=== PATIENT | female | born 1975 | race Caucasian/White ===

== ENCOUNTER 2016-05-20 09:31 | Emergency (ER) | payer BC ==
[2016-05-20 11:03] VITALS: BP 119/76
--- NOTE | 2016-05-20 11:18 | UC ---
Reggie Russell SooYoung, scribed for LexFátima AvilesDO on 05/20/16 at 1028 . Headache HPI - HPI Summary HPI Summary: A 41 y/o F presents to [facility] with fever and "raging" WHITESIDE over the forehead and face , onset two days ago. Pt didn't go to work two days ago due to sx. Associated positive sx: malaise, mildly productive cough, fever and chills. WHITESIDE described as throbbing. Pt had a GI bug approx 10 days ago with n/v/d that resolved. She notes both her children have been ill over the past week. One child diagnosed with PNA and secondary sinusitis six days ago. She notes only getting 4 to 5 non-continuous hours of sleep for past two weeks due to sick children, kids having sleep difficulties. - History Of Current Complaint Chief Complaint: UCGeneralIllness Stated Complaint: SINUS COMPLAINT Time Seen by Provider: 05/20/16 10:03 Hx Obtained From: Patient Hx Last Menstrual Period: 05/20/16 Onset/Duration: Gradual Onset, Lasting Days, Still Present Onset Of Symptoms: Gradual, Still Present Initially Headache Was: Moderate Currently Pain Is: Mild Pain Intensity: 2 Pain Scale Used: 0-10 Numeric Timing: Constant Character: Throbbing Location of Headache: Frontal, Other: - maxillary Aggravating Factor: Position Change, Other - supine Allevating Factors: Other (Noted In Comments) - upright Associated Signs And Symptoms: Positive: Nausea - mild, Sinus Pressure, Fever. Negative: Dizziness, Vomiting, Neck Stiffness - Allergies/Home Medications Allergies/Adverse Reactions: Allergies Allergy/AdvReac Type Severity Reaction Status Date / Time Amoxicillin Allergy Severe Rash Verified 05/20/16 10:17 Penicillins [PCN] Allergy Severe Rash Verified 05/20/16 10:17 Adhesive Tape Allergy ITCHY RASH Verified 05/20/16 10:17 ENVIRONMENTAL Allergy Unknown Uncoded 05/20/16 10:17 Reaction Details LATEX Allergy ITCHY RASH Uncoded 05/20/16 10:17 PMH/Surg Hx/FS Hx/Imm Hx Previously Healthy: Yes Endocrine History Of: Denies: Diabetes, Thyroid Disease Cardiovascular History Of: Denies: Cardiac Disorders, Hypertension Respiratory History Of: Denies: COPD, Asthma GI/ History Of: Denies: Ulcer Neurological History Of: Reports: Migraine - SEVERE - CAUSING HOSPITALIZATION X 2 Psychological History Of: Reports: Anxiety - Surgical History Surgical History: None - Family History Known Family History: Positive: Cardiac Disease - maternal grandmother - CHF, at 62, Diabetes - maternal grandmother - Social History Occupation: Employed Full-time Lives: With Family Alcohol Use: None Alcohol Amount: denies alcohol use while Substance Use Type: None Smoking Status (MU): Never Smoked Tobacco Have You Smoked in the Last Year: No - Immunization History Most Recent Influenza Vaccination: Pt Declined Offer Most Recent Tetanus Shot: Pt reports received at her final visit with [facility] at office Most Recent Pneumonia Vaccination: na Review of Systems Constitutional: Fever, Chills Skin: Negative Eyes: Negative ENT: Negative Respiratory: Cough - mild, productive Cardiovascular: Negative Gastrointestinal: Negative Genitourinary: Negative Motor: Negative Neurovascular: Negative Musculoskeletal: Negative Neurological: Headache Psychological: Negative All Other Systems Reviewed And Are Negative: Yes Physical Exam Triage Information Reviewed: Yes Appearance: Well-Appearing, No Pain Distress, Well-Nourished Vital Signs: Initial Vital Signs Temp 98.6 F 05/20/16 10:01 Pulse 78 05/20/16 10:01 Resp 18 05/20/16 10:01 BP 119/76 05/20/16 10:01 Pulse Ox 98 05/20/16 10:01 Vital Signs Reviewed: Yes Eyes: Positive: Conjunctiva Clear. Negative: Discharge ENT: Positive: Hearing grossly normal, Pharynx normal, TMs normal, Other: - sinus tenderness over frontal and maxillary sinuses. Negative: Tonsillar swelling, Tonsillar exudate, Trismus, Muffled/hoarse voice Neck exam: Normal Neck: Positive: Supple Respiratory: Positive: Lungs clear, Normal breath sounds, No respiratory distress, No accessory muscle use Cardiovascular: Positive: RRR, No Murmur Musculoskeletal Exam: Normal Musculoskeletal: Positive: Strength Intact Neurological: Positive: Alert, Muscle Tone Normal Psychological Exam: Normal Psychological: Positive: Age Appropriate Behavior Skin Exam: Normal, Other - pos: warm, dry, nml color Headache Course/Dx - Differential Dx/Diagnosis Differential Diagnosis/HQI/PQRI: Sinus Headache, Tension Headache, Viral Syndrome, Other - uri Provider Diagnoses: sinusitis Discharge - Discharge Plan Condition: Stable Disposition: HOME Prescriptions: Albuterol HFA INHALER* [Ventolin HFA Inhaler*] 2 puff INH Q4H PRN #1 mdi PRN Reason: Sob/Wheezing Azithromycin TAB* [Zithromax TAB (Z-ANNA MARIE) 250 mg #6 tabs] 0 mg PO .SEE INSTRUCTIONS #6 tab guaiFENesin ER TAB [Mucinex*] 600 mg PO BID PRN #1 box PRN Reason: Cough guaiFENesin/CODIEN 100MG-10MG* [Robitussin AC 100Mg-10Mg*] 5 - 10 ml PO BEDTIME PRN #100 udc MDD 10ml PRN Reason: Cough Patient Education Materials: Guaifenesin/Hydrocodone (By mouth), Sinusitis (ED) Referrals: Horace Velasquez, [employer] [facility] [facility] [Primary Care Provider] - If Needed Additional Instructions: TRY USING THE NETTI POT IN THE MORNINGS DISCUSSED. YOU MUST ALWAYS USE CLEAN WATER. REMEMBER, POSTURE IS AN IMPORTANT FACTOR IN SINUS DRAINAGE. MOVE YOUR NECK, BREATHE. INHALED BRONCHODILATORS: You have received a prescription for an inhaled bronchodilator -- a medication which stimulates the airways in the lung to dilate. This improves the flow of air in asthma, bronchitis, and emphysema. These medicines have some similarity to adrenaline, and can cause similar side effects: shakiness, racing heart, and a sense of nervousness. These side effects decrease with time. Contact your doctor if these side effects are severe. Do not over-use the medicine. Too-frequent use of the inhaler may make it ineffective. Call your doctor if the inhaler is not controlling your symptoms at the prescribed doses. COUGH-SUPPRESSANT & EXPECTORANT MEDICATION: You are to use a cough medication as needed for relief of symptoms. This medicine is a combination of an expectorant (to make the mucous thinner and more easily "coughed up") and a cough suppressant (to reduce the frequency of coughing). The cough-suppressant medicine is related to narcotics. You may experience mild nausea and sleepiness. Some patients who are very sensitive to narcotics may have stomach pain from this medicine. Taking the medicine with food reduces these side effects. Do not drive or work with machinery until you know how this medicine affects you. The expectorant should have no side effects. Iodine-containing expectorants (such as organidin) should not be taken by persons with active thyroid disease unless approved by your doctor. Call the doctor if you develop shortness of breath, hives, rash, itching, lightheadedness, or severe nausea and vomiting. EXPECTORANT MEDICATION: An expectorant medicine has been prescribed. This type of drug makes mucous thinner, helping the sinuses, nose, and bronchial tubes to remain free of pus and mucous. Expectorants make a cough less severe and more comfortable, and help infected sinuses drain. In general, antihistamines defeat the purpose of the expectorant by making mucous thicker. They should be avoided unless specifically recommended by your physician. AZITHROMYCIN: Azithromycin (Zithromax) is a broad spectrum antibiotic in the same class as erythromycin. It can treat a variety of bacterial infections, but is most frequently used for respiratory infections. Azithromycin is extremely long-lasting. It accumulates in body tissues and continues to kill bacteria for many days. In order to improve absorption, Azithromycin should be taken at least one hour before or two hours after a meal. It does not have the same strong tendency to upset the stomach as erythromycin and is usually very well tolerated. Patients who have had a rash or other true allergic reactions to erythromycin should not take this medication. Call if you develop gastrointestinal distress, severe diarrhea, rash, hives, itching, or shortness of breath. ANY TIME YOU TAKE AN ANTIBIOTIC, IT IS IMPORTANT TO REPLENISH THE BODY'S BALANCE OF "GOOD" BACTERIA BY EATING HIGH QUALITY CULTURED FOOD SUCH YOGURT, SAURKRAUT OR LOLLY CHI AND/OR TAKING A PROBIOTIC SUPPLEMENT. As we discussed: Take the Azithromycin prescription if you feel you need it. Remember to eat probiotic foods such as local yogurt, kimchi, sauerkraut, etc. for one month after finishing your prescriptions. Use the Albuterol inhaler as prescribed as needed. Use the Robitussin/Codeine as prescribed as needed. The documentation as recorded by the Reggie julien SooYoung accurately reflects the service I personally performed and the decisions made by me, Fátima Burnett DO.
== END 2016-05-20 11:34 | disposition home or self-care (01) ==
LOC: UCEAST 09:31
DX: G43.909 Migraine, unspecified, not intractable, without status migrainosus (principal); J32.9 Chronic sinusitis, unspecified; F41.9 Anxiety disorder, unspecified; Z88.3 Allergy status to other anti-infective agents; Z88.0 Allergy status to penicillin; Z91.040 Latex allergy status
CPT/HCPCS: 99212; G0463

== ENCOUNTER 2017-04-05 08:09 | Emergency (ER) | payer BC, OTHER ==
[2017-04-05 08:23] VITALS: BP 111/56
--- NOTE | 2017-04-05 10:03 | UC ---
FLU HPI - HPI Summary HPI Summary: PT WITH URI SX FOR ABOUT A MONTH. FELT WORSE PAST FEW DAYS SO WENT TO PCP WHO RX DOXY FOR BRONCHITIS. PT WAS HESITANT TO TAKE IT AND WANTS TO BE SWABBED FOR FLU. OVER PAST 2 DAYS HAS DEVELOPED FEVER 102.4, BODY ACHES, WHITESIDE AND NAUSEA. - History of Current Complaint Chief Complaint: UCGeneralIllness Stated Complaint: FLU SYMPTOMS Time Seen by Provider: 04/05/17 08:25 Hx Obtained From: Patient Hx Last Menstrual Period: 03/31/17 Onset/Duration: Gradual Onset, Lasting Days, Still Present Severity Currently: Moderate Severity Initially: Moderate Pain Intensity: 7 Pain Scale Used: 0-10 Numeric Associated Signs & Symptoms: Positive: Fever, Myalgia, Cough, Nasal Congestion, Headache - Allergy/Home Medications Allergies/Adverse Reactions: Allergies Allergy/AdvReac Type Severity Reaction Status Date / Time MS Amoxicillin [Amoxicillin] Allergy Severe Rash Verified 04/05/17 08:19 MS Penicillins [PCN] Allergy Severe Rash Verified 04/05/17 08:19 Adhesive Tape Allergy ITCHY RASH Verified 04/05/17 08:19 ENVIRONMENTAL Allergy Unknown Uncoded 04/05/17 08:19 Reaction Details LATEX Allergy ITCHY RASH Uncoded 04/05/17 08:19 PMH/Surg Hx/FS Hx/Imm Hx Previously Healthy: Yes - Surgical History Surgical History: Yes Surgery Procedure, Year, and Place: d/c - Family History Known Family History: Positive: Cardiac Disease - maternal grandmother - CHF, at 62, Diabetes - maternal grandmother - Social History Alcohol Use: None Alcohol Amount: denies alcohol use while Substance Use Type: None Smoking Status (MU): Never Smoked Tobacco Have You Smoked in the Last Year: No - Immunization History Most Recent Influenza Vaccination: Pt Declined Offer Most Recent Tetanus Shot: Pt reports received at her final visit with [facility] at office Most Recent Pneumonia Vaccination: na Review of Systems Constitutional: Fever, Chills, Fatigue ENT: Nasal Discharge Respiratory: Shortness Of Breath, Cough Cardiovascular: Negative Gastrointestinal: Nausea Genitourinary: Negative Musculoskeletal: Myalgia Neurological: Headache All Other Systems Reviewed And Are Negative: Yes Physical Exam Triage Information Reviewed: Yes Appearance: No Pain Distress, Well-Nourished, Ill-Appearing - MOD Vital Signs: Initial Vital Signs Temp 98.3 F 04/05/17 08:20 Pulse 98 04/05/17 08:20 Resp 18 04/05/17 08:20 BP 111/56 04/05/17 08:20 Pulse Ox 99 04/05/17 08:20 Eyes: Positive: Conjunctiva Clear ENT: Positive: Hearing grossly normal, Pharynx normal, TMs normal Neck: Positive: Supple, Nontender, Enlarged Nodes @ - SHOTTY SPFL CERVICAL LAD Respiratory Exam: Normal Cardiovascular: Positive: Tachycardia Abdomen Description: Positive: Soft Musculoskeletal: Positive: No Edema Neurological: Positive: Alert Psychological: Positive: Age Appropriate Behavior Skin: Negative: rashes Diagnostics - Laboratory Diagnostic Studies Completed/Ordered: FLU SWAB NEGATIVE Flu Course/Dx - Course Course Of Treatment: DISCUSSED POSSIBILITY OF PNA. PT ALREADY HAS RX FOR DOXY. DECLINES XRAY TODAY. WILL SEEK FOLLOW-UP IF NOT IMPROVING WITH TX. - Differential Dx/Diagnosis Provider Diagnoses: BRONCHITIS Discharge - Discharge Plan Condition: Stable Disposition: HOME Prescriptions: Codeine Phosphate/Guaifenesin [Codeine-Guaifen 10-100 mg/5 ml] 5 - 10 ml PO Q6H PRN #150 ml MDD 40ML PRN Reason: Cough Ondansetron ODT TAB* [Zofran Odt TAB*] 4 mg PO Q6H PRN #20 tab.odt PRN Reason: Nausea/Vomiting Patient Education Materials: Acute Bronchitis (ED) Referrals: Horace Velasquez [facility] [Primary Care Provider] - If Needed Additional Instructions: FLU SWAB NEGATIVE. GO AHEAD AND FILL RX FOR DOXY PRESCRIBED BY YOUR PCP. RX FOR COUGH MEDICINE AND NAUSEA MEDICINE SENT IN FOR YOU TODAY. FOLLOW-UP WITH YOUR PCP IF YOU ARE NOT IMPROVING EXPECTED OVER THE NEXT FEW DAYS.
== END 2017-04-05 09:58 | disposition home or self-care (01) ==
LOC: UCEAST 08:09
DX: J40 Bronchitis, not specified as acute or chronic (principal); Z91.040 Latex allergy status; Z88.0 Allergy status to penicillin; Z91.048 Other nonmedicinal substance allergy status
CPT/HCPCS: 87502; 99212; G0463

== ENCOUNTER 2017-10-23 10:12 | Emergency (ER) | payer BC ==
[2017-10-23 11:27] LABS: ABS Basophils 0 10^3/ul (0-0.2); ABS Eosinophils 0.1 10^3/ul (0-0.6); ABS Lymphocytes 1.2 10^3/ul (1.0-4.8); ABS Monocytes 0.5 10^3/ul (0-0.8); ABS Neutrophils 3.4 10^3/ul (1.5-7.7); ABS Nucleated RBC 0 10^3/ul; Hematocrit 42 % (35-47); Hemoglobin 14.6 g/dl (12.0-16.0); Lymphocyte % 23.4 % (25-47); Mean Corpuscular HGB Conc 35 g/dl (31-36); Mean Corpuscular Hemoglobin 32 pg (27-31); Mean Corpuscular Volume 92 fL (80-97); Mean Platelet Volume 7.7 um3 (7.4-10.4); Nucleated Red Blood Cells % 0.2; Platelet Count 237 10^3/ul (150-450); Red Blood Count 4.53 10^6/ul (4.00-5.40); Red Cell Distribution Width 12 % (10.5-15); White Blood Count 5.2 10^3/ul (3.5-10.8)
[2017-10-23] MEDS ORDERED: NS 0.9% 1000 ML* 1,000 ML IV ONE (11:28)
[2017-10-23] MEDS ORDERED: Pantoprazole IV* 40 MG IV ONE (11:28)
[2017-10-23] MEDS ORDERED: ALPRAZolam TAB* 0.25 MG PO ONE (11:29)
--- OUTSIDE RECORDS SUMMARY | 2017-10-23 11:41 | XMS REPORT ---
:1975 External Reference #:[id number] Author Organization [employer] Address [address] [facility] [place] [address] [place] [address] Phone [phone] Care Team Providers Name Role Phone Cynthia Grover MD Primary Care Physician Unavailable Payers Type Date Identification Numbers Payment Provider Subscriber Commercial Policy Number: [id number] [facility] Corona Group Number: [id number] [address] PayID: [id number] [place] [address] Problems Date Description Provider Status Onset: 05/29/2012 FH: Cardiovascular disease Lindsey Ramires M.D. Active Onset: 05/29/2012 Family history of endocrine disorders Lindsey Ramires M.D. Active Onset: 01/08/2013 Acquired spondylolisthesis Anand Ortega M.D. Active Onset: 01/30/2017 Trochanteric bursitis Leann Nieto M.D. Active Onset: 01/30/2017 Gluteal tendinitis Leann Nieto M.D. Active Onset: 06/04/2017 Localized, secondary osteoarthritis Killian Brunner MD Active of the shoulder region Onset: 06/04/2017 Sprain of shoulder and upper arm Killian Brunner MD Active Family History Date Family Member(s) Problem(s) Comments General Diabetes General Heart Disease General Cancer General arthritis Social History Type Date Description Comments Lives With Spouse Lives With dog Occupation PhD [employer] Cigarette Use Never Smoked Cigarettes ETOH Use Denies alcohol use during Recreational Drug Use Denies Drug Use Smoking Patient has never smoked Exercise Type/Frequency bike, hike, snow shoe, cross ct sking, yoga, run Exercise Type/Frequency Exercises regularly Sexual Hx text yes Allergies, Adverse Reactions, Alerts Date Description Reaction Status Severity Comments 05/13/2012 Latex Contact dermatitis active 05/13/2012 Adhesives Contact dermatitis active 10/24/2012 Penicillins rash, mouth sores active Medications Medication Date Status Form Strength Qnty SIG Indications Ordering Provider Advil / Active Capsules 200mg as needed Unknown 0000 Acetaminophen / Active Tablets 500mg 1-2 tabs Unknown 0000 3x a day as needed Celecoxib 05/21/ Hx Capsules 100mg 60cap 100mg by Olaf Reyes 2018 - s mouth Wilrfedo, 10/22/ twice a MD 2018 day as needed Doxycycline 04/03/ Hx Tablets 100mg 20tab 1 tab by R05 Camila Hyclate 2018 - s mouth Cotton, 05/21/ twice a M.D. 2018 day for 10 days Meloxicam 01/24/ Hx Tablets 7.5mg 30tab 1 -2 M25.551 Horace 2016 - s tablet by SAURABH Velasquez 04/03/ mouth once 2018 daily as needed Tramadol HCL 01/24/ Hx Tablets 50mg 30tab 1-2 M25.551 Horace 2016 - s tablets SAURABH Velasquez 04/03/ every 8 2018 hours as needed for pain. Omeprazole 01/24/ Hx Capsules DR 20mg 14cap 1 by mouth R10.9 Horace 2017 - s once daily SAURABH Velasquez 2017 Tennis Elbow 11/10/ Hx Misc 2unit Wear on M25.529 Horace Strap 2015 - s bilateral SAURABH Velasquez 01/23/ elbows for 2017 lateral eipcondyli tis. No Active 03/10/ Hx Unknown Medications 2014 - 2016 No Active 11/26/ Hx Unknown Medications 2013 - 2013 Azithromycin 11/26/ Hx Tablets 250mg 6tabs 2 tabs by 461.8 Horace 2013 - mouth SAURABH Velasquez 12/30/ every day 2013 x1 day, 1 tab by mouth every day x 4 days Fluticasone 11/26/ Hx Suspension 50mcg/Act 16gm 2 sprays 381.81 Horace Propionate 2013 - each SAURABH Velasquez 03/10/ nostril 2014 qd. Lidocaine 10/07/ Hx Solution 2% 100cc 5 cc po 528.5 Lindsey Viscous 2012 - Justin 10/07/ tam Viera 2012 Lidocaine 10/07/ Hx Solution 2% 100un 10 cc 528.5 Lindsey Viscous 2012 - its Justin, 10/24/ sandra Viera 2012 / Hx Tablets 27-0.8mg 90tab 1 po qd Unknown 0000 - s 2013 Fish Oil / Hx Capsules 90cap 1 po qd Unknown 0000 - s 2012 Aleve / Hx Capsules 220mg 1-2 by Unknown 0000 - mouth 10/22/ twice a 2018 day as needed Immunizations CPT Code Status Date Vaccine Lot # [id number] Given 01/18/2015 Tdap - Tetanus/Diptheria/Acellular Pertussis [id number] Vital Signs Date Vital Result Comment 10/22/2017 Height 64 inches 5'4" Weight 140.00 lb Heart Rate 71 /min BP Systolic Sitting 120 mmHg BP Diastolic Sitting 66 mmHg Body Temperature 96.4 F O2 % BldC Oximetry 98 % BMI (Body Mass Index) 24.0 kg/m2 06/04/2017 Height 64 inches 5'4" Weight 138.00 lb Heart Rate 64 /min BP Systolic Sitting 100 mmHg BP Diastolic Sitting 60 mmHg Respiratory Rate 16 /min Pain Level 5 BMI (Body Mass Index) 23.7 kg/m2 05/21/2017 Height 64 inches 5'4" Weight 138.00 lb Heart Rate 64 /min BP Systolic Sitting 104 mmHg BP Diastolic Sitting 60 mmHg Respiratory Rate 16 /min Pain Level 4 BMI (Body Mass Index) 23.7 kg/m2 05/21/2017 Weight 138.50 lb Heart Rate 69 /min BP Systolic Sitting 100 mmHg BP Diastolic Sitting 60 mmHg Body Temperature 96.1 F O2 % BldC Oximetry 98 % 04/03/2017 Weight 143.00 lb Heart Rate 79 /min BP Systolic 112 mmHg BP Diastolic 72 mmHg Body Temperature 97.1 F O2 % BldC Oximetry 98 % Peak Flow Meter 400 500,400 01/30/2017 Height 64 inches 5'4" Weight 140.00 lb BP Systolic 108 mmHg BP Diastolic 68 mmHg Pain Level 8 BMI (Body Mass Index) 24.0 kg/m2 01/24/2017 Height 63.5 inches 5'3.50" Weight 144.00 lb Heart Rate 68 /min BP Systolic Sitting 104 mmHg BP Diastolic Sitting 70 mmHg Body Temperature 97.1 F O2 % BldC Oximetry 98 % BMI (Body Mass Index) 25.1 kg/m2 11/11/2015 Weight 148.00 lb Heart Rate 68 /min BP Systolic Sitting 118 mmHg BP Diastolic Sitting 64 mmHg Respiratory Rate 15 /min Body Temperature 98.1 F O2 % BldC Oximetry 98 % 03/10/2014 Height 63.5 inches 5'3.50" Weight 132.00 lb Heart Rate 81 /min BP Systolic 100 mmHg BP Diastolic 60 mmHg Body Temperature 97.7 F O2 % BldC Oximetry 99 % BMI (Body Mass Index) 23.0 kg/m2 11/26/2013 Weight 139.50 lb Heart Rate 67 /min BP Systolic Sitting 102 mmHg BP Diastolic Sitting 68 mmHg Body Temperature 99.2 F O2 % BldC Oximetry 97 % 07/24/2013 Weight 141.00 lb Heart Rate 68 /min BP Systolic Sitting 110 mmHg BP Diastolic Sitting 60 mmHg 01/08/2013 Height 64 inches 5'4" Weight 159.00 lb BP Systolic 118 mmHg BP Diastolic 72 mmHg Pain Level 0 BMI (Body Mass Index) 27.3 kg/m2 10/24/2012 Weight 149.00 lb Heart Rate 80 /min BP Systolic Sitting 118 mmHg BP Diastolic Sitting 70 mmHg 10/14/2012 Weight 143.56 lb Heart Rate 76 /min BP Systolic Sitting 98 mmHg BP Diastolic Sitting 60 mmHg Body Temperature 98.3 F 10/09/2012 Weight 144.00 lb Heart Rate 96 /min BP Systolic 118 mmHg BP Diastolic 64 mmHg Body Temperature 98.7 F 10/07/2012 Weight 147.25 lb Heart Rate 91 /min BP Systolic Sitting 102 mmHg BP Diastolic Sitting 70 mmHg Body Temperature 97.2 F O2 % BldC Oximetry 99 % 08/27/2012 Weight 140.00 lb Heart Rate 80 /min BP Systolic Sitting 106 mmHg BP Diastolic Sitting 64 mmHg 05/13/2012 Height 63.50 inches 5'3.50" Weight 144.00 lb Heart Rate 70 /min BP Systolic 90 mmHg BP Diastolic 68 mmHg BMI (Body Mass Index) 25.1 kg/m2 Results Test Date Test Result H/L Range Note GC/Chlamydia Amplified 06/06/2017 Chlamydia trachomatis Negative Negative Rna Rna Neisseria gonorrhoeae (GC) Rna Negative Negative Laboratory test 06/06/2017 Cytology SEE RESULT BELOW 1 finding Rapid Influenza A & B 04/05/2017 Influenza A Molecular NEGATIVE Negative 2 Molecular Influenza B Molecular NEGATIVE Negative CBC No Diff 01/24/2017 White Blood Count 4.4 10^3/uL 3.5-10.8 Red Blood Count 4.76 10^6/uL 4.0-5.4 Hemoglobin 15.0 g/dL 12.0-16.0 Hematocrit 44 % 35-47 Mean Corpuscular Volume 93 fL 80-97 Mean Corpuscular Hemoglobin 32 pg High 27-31 Mean Corpuscular HGB Conc 34 g/dL 31-36 Red Cell Distribution Width 12 % 10.5-15 Platelet Count 171 10^3/uL 150-450 Mean Platelet Volume 9 um3 7.4-10.4 Comp Metabolic Panel 01/24/2017 Sodium 137 mmol/L 133-145 Potassium 4.0 mmol/L 3.5-5.0 Chloride 103 mmol/L 101-111 Co2 Carbon Dioxide 29 mmol/L 22-32 Anion Gap 5 mmol/L 2-11 Glucose 85 mg/dL 70-100 Blood Urea Nitrogen 11 mg/dL 6-24 Creatinine 0.78 mg/dL 0.51-0.95 BUN/Creatinine Ratio 14.1 8-20 Calcium 9.2 mg/dL 8.6-10.3 Total Protein 7.1 g/dL 6.4-8.9 Albumin 4.8 g/dL 3.2-5.2 Globulin 2.3 g/dL 2-4 Albumin/Globulin Ratio 2.1 1-3 Total Bilirubin 0.50 mg/dL 0.2-1.0 Alkaline Phosphatase 42 U/L 34-104 Alt 12 U/L 7-52 Ast 21 U/L 13-39 Egfr Non- 81.4 >60 Egfr 104.7 >60 3 Laboratory test finding 01/24/2017 Amylase 75 U/L 29-103 Lipase 32 U/L 11.0-82.0 Urinalysis Profile 01/24/2017 Urine Color Yellow Urine Appearance Clear Urine Specific [employer] 1.005 Low 1.010-1.030 Urine pH 7.0 5-9 Urine Urobilinogen Negative Negative Urine Ketones Negative Negative Urine Protein Negative Negative Urine Leukocytes Trace Negative Urine Blood 1+ Negative Urine Nitrite Negative Negative Urine Bilirubin Negative Negative Urine Glucose Negative Negative Urine White Blood Cell Trace(0-5/hpf) Absent Urine Red Blood Cell Absent Absent Urine Bacteria 1+ Absent Urine Squamous Epithelial Cell Present Absent Urine Culture And Sensitivities 01/24/2017 Urine Culture SEE RESULT BELOW 4 Urinalysis Profile 01/24/2017 Urine Color Yellow 5 Urine Appearance Cloudy 5 Urine Specific [employer] 1.004 Low 1.010-1.030 5 Urine pH 7.0 5-9 5 Urine Urobilinogen Negative Negative 5 Urine Ketones Negative Negative 5 Urine Protein Negative Negative 5 Urine Leukocytes 3+ Negative 5 Urine Blood 1+ Negative 5 Urine Nitrite Negative Negative 5 Urine Bilirubin Negative Negative 5 Urine Glucose Negative Negative 5 Urine White Blood Cell 1+(6-10/hpf) Absent 5 Urine Red Blood Cell Trace(0-2/hpf) Absent 5 Urine Bacteria 1+ Absent 5 Urine Squamous Epithelial Cell Present Absent 5 Urine Culture And 01/24/2017 Urine Culture SEE RESULT BELOW 5, 6 Sensitivities Ua Routine 01/24/2017 Ua Specific [employer] 1.005 Ua PH 7 Ua Color Yellow Ua Appera Cloudy Ua WBC + Ua Protein Neg Ua Glucose Neg Ua Ketones Neg Ua Bilirubin Neg Ua Urobilinogen Neg Ua Nitrite Neg Ua Occult Blood About 50 Laboratory test finding 01/24/2017 Test Urine Neg CBC Auto Diff 11/11/2015 White Blood Count 7.0 10^3/uL 3.5-10.8 Red Blood Count 4.38 10^6/uL 4.0-5.4 Hemoglobin 13.7 g/dL 12.0-16.0 Hematocrit 40 % 35-47 Mean Corpuscular Volume 91 fL 80-97 Mean Corpuscular Hemoglobin 31 pg 27-31 Mean Corpuscular HGB Conc 35 g/dL 31-36 Red Cell Distribution Width 12 % 10.5-15 Platelet Count 174 10^3/uL 150-450 Mean Platelet Volume 9 um3 7.4-10.4 Abs Neutrophils 4.9 10^3/uL 1.5-7.7 Abs Lymphocytes 1.4 10^3/uL 1.0-4.8 Abs Monocytes 0.5 10^3/uL 0-0.8 Abs Eosinophils 0.1 10^3/uL 0-0.6 Abs Basophils 0.1 10^3/uL 0-0.2 Abs Nucleated RBC 0 10^3/uL Granulocyte % 69.7 % 38-83 Lymphocyte % 20.3 % Low 25-47 Monocyte % 7.6 % 1-9 Eosinophil % 1.1 % 0-6 Basophil % 1.3 % 0-2 Nucleated Red Blood Cells % 0 Comp Metabolic Panel 11/11/2015 Sodium 141 mmol/L 133-145 Potassium 3.6 mmol/L 3.5-5.0 Chloride 106 mmol/L 101-111 Co2 Carbon Dioxide 28 mmol/L 22-32 Anion Gap 7 mmol/L 2-11 Glucose 139 mg/dL High 70-100 Blood Urea Nitrogen 19 mg/dL 6-24 Creatinine 0.85 mg/dL 0.51-0.95 BUN/Creatinine Ratio 22.4 High 8-20 Calcium 8.8 mg/dL 8.6-10.3 Total Protein 6.5 g/dL 6.4-8.9 Albumin 4.3 g/dL 3.2-5.2 Globulin 2.2 g/dL 2-4 Albumin/Globulin Ratio 2.0 1-3 Total Bilirubin 0.40 mg/dL 0.2-1.0 Alkaline Phosphatase 61 U/L 34-104 Alt 10 U/L 7-52 Ast 18 U/L 13-39 Egfr Non- 74.1 >60 Egfr 95.3 >60 7 Laboratory test finding 11/11/2015 TSH (Thyroid Stim Horm) 1.12 mcIU/mL 0.34-5.60 Vitamin D Total 25(Oh) 33.7 ng/mL 30-50 Lyme Disease Serology Negative Negative 8 Anti Nuclear Antibody 0.1 U 9 Rheumatoid Factor <15 IU/mL <15 10 Cyclic Citrullinated Pep Igg <15.6 U 11 Erythrocyte Sed Rate 5 mm/Hr 0-14 C Reactive Protein < 1.00 mg/L < 5.00 12 Laboratory test 02/03/2015 Group B Strep SEE RESULT BELOW 13, 14 finding Culture Screen Comp Metabolic Panel 11/08/2014 Sodium 136 mmol/L 133-145 Potassium 3.2 mmol/L Low 3.5-5.0 Chloride 104 mmol/L 101-111 Co2 Carbon Dioxide 23 mmol/L 22-32 Anion Gap 9 mmol/L 2-11 Glucose 79 mg/dL 70-100 Blood Urea Nitrogen 10 mg/dL 6-24 Creatinine 0.51 mg/dL 0.51-0.95 BUN/Creatinine Ratio 19.6 8-20 Calcium 7.8 mg/dL Low 8.6-10.3 Total Protein 5.7 g/dL Low 6.4-8.9 Albumin 3.3 g/dL 3.2-5.2 Globulin 2.4 g/dL 2-4 Albumin/Globulin Ratio 1.4 1-3 Total Bilirubin 0.50 mg/dL 0.2-1.0 Alkaline Phosphatase 67 U/L 34-104 Alt 14 U/L 7-52 Ast 22 U/L 13-39 Egfr Non- 134.3 >60 Egfr 172.7 >60 15 Laboratory test finding 11/08/2014 Lipase 21 U/L 11.0-82.0 C Reactive Protein 3.17 mg/L < 5.00 16 CBC Auto Diff 11/08/2014 White Blood Count 12.5 10^3/uL High 4.8-10.8 Red Blood Count 3.87 10^6/uL Low 4.0-5.4 Hemoglobin 12.8 g/dL 12.0-16.0 Hematocrit 38 % 35-47 Mean Corpuscular Volume 97 fL 80-97 Mean Corpuscular Hemoglobin 33 pg High 27-31 Mean Corpuscular HGB Conc 34 g/dL 31-36 Red Cell Distribution Width 13 % 10.5-15 Platelet Count 150 10^3/uL 150-450 Mean Platelet Volume 9 um3 7.4-10.4 Abs Neutrophils 11.1 10^3/uL High 1.5-7.7 Abs Lymphocytes 0.7 10^3/uL Low 1.0-4.8 Abs Monocytes 0.7 10^3/uL 0-0.8 Abs Eosinophils 0 10^3/uL 0-0.6 Abs Basophils 0 10^3/uL 0-0.2 Abs Nucleated RBC 0 10^3/uL Granulocyte % 88.4 % High 38-83 Lymphocyte % 5.8 % Low 25-47 Monocyte % 5.4 % 1-9 Eosinophil % 0.2 % 0-6 Basophil % 0.2 % 0-2 Nucleated Red Blood Cells % 0 Urinalysis Profile 11/08/2014 Urine Color Yellow Urine Appearance Clear Urine Specific [employer] 1.015 1.010-1.030 Urine pH 6.0 5-9 Urine Urobilinogen Negative Negative Urine Ketones 2+ Negative Urine Protein Negative Negative Urine Leukocytes Negative Negative Urine Blood Negative Negative Urine Nitrite Negative Negative Urine Bilirubin Negative Negative Urine Glucose Negative Negative Pertussis PCR 02/28/2014 Bordetella Source Nasopharyngeal s <SEE NOTE> 17 Bordetella pertussis PCR Negative 18 Bordetella parapertussis PCR Negative 19 Blood Culture 12/27/2013 Blood Culture (SEE NOTE) 20 Wound Culture/Sensi 12/27/2013 Wound/Misc Culture-Gram (SEE NOTE) 21 Stain CBC Auto Diff 12/27/2013 White Blood Count 7.3 10^3/uL 4.8-10.8 Red Blood Count 4.39 10^6/uL 4.0-5.4 Hemoglobin 13.5 g/dL 12.0-16.0 Hematocrit 40 % 35-47 Mean Corpuscular Volume 90 fL 80-97 Mean Corpuscular Hemoglobin 31 pg 27-31 Mean Corpuscular HGB Conc 34 g/dL 31-36 Red Cell Distribution Width 12 % 10.5-15 Platelet Count 135 10^3/uL Low 150-450 Mean Platelet Volume 8 um3 7.4-10.4 Abs Neutrophils 5.0 10^3/uL 1.5-7.7 Abs Lymphocytes 1.0 10^3/uL 1.0-4.8 Abs Monocytes 1.1 10^3/uL High 0-0.8 Abs Eosinophils 0.1 10^3/uL 0-0.6 Abs Basophils 0.1 10^3/uL 0-0.2 Abs Nucleated RBC 0 10^3/uL Granulocyte % 68.6 % 38-83 Lymphocyte % 13.3 % Low 25-47 Monocyte % 15.8 % High 1-9 Eosinophil % 1.5 % 0-6 Basophil % 0.8 % 0-2 Nucleated Red Blood Cells % 0 Laboratory test finding 12/27/2013 Lactic Acid 0.7 mmol/L 0.5-2.2 Comp Metabolic Panel 12/27/2013 Sodium 139 mmol/L 133-145 Potassium 3.6 mmol/L Low 3.7-5.6 Chloride 105 mmol/L 101-111 Co2 Carbon Dioxide 27 mmol/L 22-32 Anion Gap 7 mmol/L 2-11 Glucose 71 mg/dL 70-100 Blood Urea Nitrogen 7 mg/dL 6-24 Creatinine 0.70 mg/dL 0.51-0.95 BUN/Creatinine Ratio 10.0 8-20 Calcium 8.7 mg/dL 8.6-10.3 Total Protein 6.7 g/dL 6.4-8.9 Albumin 4.1 g/dL 3.2-5.2 Globulin 2.6 g/dL 2-4 Albumin/Globulin Ratio 1.6 1-3 Total Bilirubin 0.60 mg/dL 0.2-1.0 Alkaline Phosphatase 75 U/L 34-104 Alt 12 U/L 7-52 Ast 21 U/L 13-39 Egfr Non- 93.6 >60 Egfr 120.4 >60 22 Laboratory test finding 12/27/2013 C Reactive Protein 68.65 mg/L High < 5.00 23 Serum Negative Negative 24 Urinalysis W/Microscopic 02/07/2013 Urine Color Yellow Urine Appearance Clear Urine Specific [employer] 1.008 Low 1.010-1.030 Urine Esterase Negative Negative Urine Nitrate Negative Negative Urine Urobilinogen Negative E.U./dL Negative Urine Protein Negative mg/dL Negative Urine pH 6.0 5-9 Urine Blood 1+ Negative Urine Ketones 1+ mg/dL Negative Urine Bilirubin Negative Negative Urine Glucose Negative mg/dL Negative Urine WBC 1+ (<10 /hpf) None Seen Urine RBC None Seen None Seen Urine Epithelial Cells 1+ Squamous /hpf None Seen Bacteria Urine 1+ None Seen CBC No Diff 02/07/2013 White Blood Count 11.6 10^3/uL High 4.8-10.8 Red Blood Count 3.78 10^6/uL Low 4.0-5.4 Hemoglobin 12.7 g/dL 12.0-16.0 Hematocrit 35 % 35-47 Mean Corpuscular Volume 94 fL 80-97 Mean Corpuscular Hemoglobin 34 pg High 27-31 Mean Corpuscular HGB Conc 36 g/dL 31-36 Red Cell Distribution Width 13 % 10.5-15 Platelet Count 153 10^3/uL 150-450 Mean Platelet Volume 10 um3 7.4-10.4 Comp Metabolic Panel 02/07/2013 Sodium 134 mmol/L 133-145 Potassium 3.6 mmol/L 3.5-5.0 Chloride 105 mmol/L 101-111 Co2 Carbon Dioxide 21.0 mmol/L Low 22-32 Anion Gap 8.0 mmol/L 2-11 Glucose 70 mg/dL 70-100 Blood Urea Nitrogen 7 mg/dL 6-24 Creatinine 0.60 mg/dL 0.50-1.40 BUN/Creatinine Ratio 11.7 8-20 Calcium 8.5 mg/dL 8.1-9.9 Total Protein 6.4 g/dL 6.2-8.1 Albumin 3.4 g/dL Low 3.6-5.4 Globulin 3.0 g/dL 2-4 Albumin/Globulin Ratio 1.1 1-3 Total Bilirubin 0.7 mg/dL 0.4-1.5 Alkaline Phosphatase 198 U/L High 30-110 Alt 18 U/L 14-54 Ast 31 U/L 12-42 Egfr Non- 112.5 >60 Egfr 144.7 >60 25 Laboratory test finding 02/07/2013 Uric Acid 5.6 mg/dL 2.6-7.2 Type & Screen 02/07/2013 Patient Blood Type O Positive Antibody Screen NEGATIVE Hepatitis Acute Panel 10/28/2012 Hepatitis C Antibody Nonreactive Nonreactive Hepatitis B Core IgM Nonreactive Nonreactive Hepatitis B Surface Antigen Nonreactive Nonreactive Liver Function Panel 10/28/2012 Alt 29 U/L 14-54 Ast 30 U/L 12-42 Alkaline Phosphatase 55 U/L 30-110 Direct Bilirubin 0.1 mg/dL 0.1-0.5 Total Bilirubin 0.5 mg/dL 0.4-1.5 Albumin 3.0 g/dL Low 3.6-5.4 Laboratory test finding 10/28/2012 GTT 2HR Gestational (SEE NOTE) 26 CBC Auto Diff 10/28/2012 White Blood Count 10.1 10^3/uL 4.8-10.8 Red Blood Count 3.52 10^6/uL Low 4.0-5.4 Hemoglobin 12.3 g/dL 12.0-16.0 Hematocrit 34 % Low 35-47 Mean Corpuscular Volume 96 fL 80-97 Mean Corpuscular Hemoglobin 35 pg High 27-31 Mean Corpuscular HGB Conc 37 g/dL High 31-36 Red Cell Distribution Width 13 % 10.5-15 Platelet Count 148 10^3/uL Low 150-450 Mean Platelet Volume 9 um3 7.4-10.4 Abs Neutrophils 7.8 10^3/uL High 1.5-7.7 Abs Lymphocytes 1.4 10^3/uL 1.0-4.8 Abs Monocytes 0.8 10^3/uL 0-0.8 Abs Eosinophils 0.1 10^3/uL 0-0.6 Abs Basophils 0 10^3/uL 0-0.2 Abs Nucleated RBC 0 10^3/uL Granulocyte % 77.1 % 38-83 Lymphocyte % 13.6 % Low 25-47 Monocyte % 8.4 % 1-9 Eosinophil % 0.6 % 0-6 Basophil % 0.3 % 0-2 Nucleated Red Blood Cells % 0 Liver Function Panel 10/14/2012 Total Protein 5.4 g/dL Low 6.2-8.1 Albumin 3.0 g/dL Low 3.6-5.4 Globulin 2.4 g/dL 2-4 Albumin/Globulin Ratio 1.3 1-3 Total Bilirubin 0.5 mg/dL 0.4-1.5 Direct Bilirubin 0.1 mg/dL 0.1-0.5 Indirect Bilirubin 0.4 mg/dL 0.3-1.0 Alkaline Phosphatase 70 U/L 30-110 Alt 114 U/L High 14-54 Ast 99 U/L High 12-42 Comp Metabolic Panel 10/09/2012 Sodium 135 mmol/L 133-145 Potassium 3.9 mmol/L 3.5-5.0 Chloride 105 mmol/L 101-111 Co2 Carbon Dioxide 22.0 mmol/L 22-32 Anion Gap 8.0 mmol/L 2-11 Glucose 121 mg/dL High 70-100 Blood Urea Nitrogen 4 mg/dL Low 6-24 Creatinine 0.50 mg/dL 0.50-1.40 BUN/Creatinine Ratio 8.0 8-20 Calcium 8.7 mg/dL 8.1-9.9 Total Protein 5.6 g/dL Low 6.2-8.1 Albumin 3.0 g/dL Low 3.6-5.4 Globulin 2.6 g/dL 2-4 Albumin/Globulin Ratio 1.2 1-3 Total Bilirubin 0.4 mg/dL 0.4-1.5 Alkaline Phosphatase 83 U/L 30-110 Alt 166 U/L High 14-54 Ast 162 U/L High 12-42 Egfr Non- 138.8 >60 Egfr 178.5 >60 27 Kev Garcia Comprehensive 10/09/2012 Ebv Capsid Ag IgG Ab Positive Negative Ebv Capsid Ag IgM Ab Negative Negative Kev-Garcia Nuclear Antigen Positive Negative Kev-Garcia Virus Interp See Comment 28 CMV Igg/Igm 10/09/2012 Cytomegalovirus IgG Antibody Negative Negative 29 Cytomegalovirus IgM Antibody Negative Negative Coxsackie A 10/09/2012 Coxsackie Virus Type A(2) Ab <1:8 Coxsackie Virus Type A(4) Ab <1:8 Coxsackie Virus Type A(7) Ab <1:8 Coxsackie Virus Type A(9) AB <1:8 Coxsackie Virus Type A(10) Ab <1:8 Coxsackie Virus Type A(16) Ab <1:8 30 Coxsackie B 10/09/2012 Coxsackie Virus Type B(1) Ab <1:8 Coxsackie Virus Type B(2) Ab <1:8 Coxsackie Virus Type B(3) Ab <1:8 Coxsackie Virus Type B(4) Ab <1:8 Coxsackie Virus Type B(5) Ab <1:8 Coxsackie Virus Type B(6) Ab <1:8 31 CBC With Manual Diff 10/09/2012 White Blood Count 7.9 10^3/uL 4.8-10.8 Red Blood Count 3.71 10^6/uL Low 4.0-5.4 Hemoglobin 12.4 g/dL 12.0-16.0 Hematocrit 35 % 35-47 Mean Corpuscular Volume 95 fL 80-97 Mean Corpuscular Hemoglobin 34 pg High 27-31 Mean Corpuscular HGB Conc 35 g/dL 31-36 Red Cell Distribution Width 12 % 10.5-15 Platelet Count 196 10^3/uL 150-450 Mean Platelet Volume 9 um3 7.4-10.4 Abs Neutrophils 5.7 10^3/uL 1.5-7.7 Abs Lymphocytes 1.3 10^3/uL 1.0-4.8 Abs Monocytes 0.8 10^3/uL 0-0.8 Abs Eosinophils 0 10^3/uL 0-0.6 Abs Basophils 0 10^3/uL 0-0.2 Abs Nucleated RBC 0 10^3/uL Neutrophil % 70 % 38-83 Lymphocytes % 18 % Low 25-47 Monocytes % 8 % 0-13 Eosinophils % 1 % 0-6 Reactive Lymph % 3 % 0-6 RBC Morphology Normal Normal Laboratory test 08/27/2012 D Dimer Quantitative 382 ng/mL High Less Than 230 32 finding 1 SEE RESULT BELOW Name: STANLEY CORONA : [address]: Emilia Ball MD Acct: [id number] Unit: [id number] AGE: 42 Location: [facility] Re06/06/17 SEX: F Status: REG REF SPEC: [id number] PILAR: 06/06/17-[address]: Emilia Ball MD REQ: [id number] RECD: 06/07/17 STATUS: ROMERO ENG DR: Horace Velasquez COMPRESSED GASES TESTER _ ORDERED: TP IMAGE ANAL, HPV/Thin Prep COMMENTS: [id number] Negative for Intraepithelial lesion or Malignancy A. Ectocervical/Endocervical Specimen Adequacy: Satisfactory of evaluation Transformation zone component identified Patient Information: HPV: High risk HPV RNA testing regardless of pap results. Actual Specimen Date: 06/07/17 Last Menstrual Date: 05/24/17 Spec Date if unknown: unknown Date Time Test Result Flag (u) Normal Range 06/06/17 6362 @ HPV RNA Negative Negative @ @ The high-risk HPV types detected by the assay include: 16, @ 18, 31, 33, 35, 39, 45, 51, 52, 56, 58, 59, 66, and 68. Signed (signature on file) HEATHER Vilchis (ASCP) 06/11 1041 This Pap test was evaluated with the assistance of the [employer] System. Due to cytologic findings at the manager child microscope, comprehensive manual rescreening by a Contact Finger Assembler may be required. The Pap Smear is a screening test designed to aid in the detection of premalignant and malignant conditions of the uterine cervix. It is not a diagnostic procedure and should not be used as the sole means of detecting cervical cancer. Both false- positive and false- negative reports do occur. Depending on your risk status, a Pap smear should be obtained and evaluated every 1-3 years. END OF REPORT DEPARTMENT OF PATHOLOGY, [address] [place] [address] Chance Bernard M.D. Director [facility] # [id number] 2 [employer] [place]: [id number] 3 Because ethnic data is not always readily available, this report includes an eGFR for both -Americans and non- Americans. The National Kidney Disease Education Program (NKDEP) does not endorse the use of the MDRD equation for patients that are not between the ages of 18 and 70, are , have extremes of body size, muscle mass, or nutritional status, or are non- or non-. According to the National Kidney Foundation, irrespective of diagnosis, the stage of the disease is based on the level of kidney function: Stage Description GFR(mL/min/1.73 m(2)) 1 Kidney damage with normal or decreased GFR 90 2 Kidney damage with mild decrease in GFR 60-89 3 Moderate decrease in GFR 30-59 4 Severe decrease in GFR 15-29 5 Kidney failure <15 (or dialysis) 4 SEE RESULT BELOW Name: LEV CORONASONYA Aviles : [address]: Horace Velasquez NP Acct: [id number] Unit: [id number] AGE: 41 Location: [facility] Re01/24/17 SEX: F Status: REG REF SPEC: [id number] PILAR: 01/24/[address]: Horace Velasquez NP REQ: [id number] RECD: 01/24/17 STATUS: COMP _ SOURCE: URINE SPDESC: ORDERED: Urine Culture QUERIES: Urine Source: Clean Catch Procedure Result Reported Site Urine Culture Final 01/25/17- 1619 ML No Growth (<1,000 CFU/mL) * ML - MAIN LAB ([facility]) . END OF REPORT * ML=Testing performed at Main Lab DEPARTMENT OF PATHOLOGY, [address] [place] [address] Chance Bernard M.D. Director [facility] # [id number] 6 SEE RESULT BELOW Name: STANLEY CORONA : [address]: Horace Velasquez NP Acct: [id number] Unit: [id number] AGE: 41 Location: [facility] Re01/24/17 SEX: F Status: REG REF SPEC: [id number] PILAR: 01/24/[address]: Horace Velasquez NP REQ: [id number] RECD: 01/24/17 STATUS: COMP _ SOURCE: URINE SPDESC: ORDERED: Urine Culture Procedure Result Reported Site Urine Culture Final 01/25/17- 1622 ML No Growth (<1,000 CFU/mL) * ML - MAIN LAB ([facility]) . END OF REPORT * ML=Testing performed at Main Lab DEPARTMENT OF PATHOLOGY, [address] [place] [address] Chance Bernard M.D. Director [facility] # [id number] 7 Because ethnic data is not always readily available, this report includes an eGFR for both -Americans and non- Americans. The National Kidney Disease Education Program (NKDEP) does not endorse the use of the MDRD equation for patients that are not between the ages of 18 and 70, are , have extremes of body size, muscle mass, or nutritional status, or are non- or non-. According to the National Kidney Foundation, irrespective of diagnosis, the stage of the disease is based on the level of kidney function: Stage Description GFR(mL/min/1.73 m(2)) 1 Kidney damage with normal or decreased GFR 90 2 Kidney damage with mild decrease in GFR 60-89 3 Moderate decrease in GFR 30-59 4 Severe decrease in GFR 15-29 5 Kidney failure <15 (or dialysis) 8 Serologic response to B. burgdorferi infection is not detected, but cannot rule out early infection during which low or undetectable antibody levels to B. burgdorferi may be present. If clinically indicated, a new serum specimen should be submitted in 7-14 days. Test Performed by: [place] [address] Superintendent Track: Artis Bowen II, M.D., Ph.D. 9 REFERENCE VALUE <=1.0 (Negative) Test Performed by: [place] [address] Superintendent Track: Artis Bowen II, M.D., Ph.D. 10 Test Performed by: [place] [address] Superintendent Track: Artis Bowen II, M.D., Ph.D. 11 REFERENCE VALUE <20.0 (Negative) Test Performed by: [place] [address] Superintendent Track: Artis Bowen II, M.D., Ph.D. 12 Acute inflammation: >10.00 13 Comment: pt has PCN allergy, needs C S if positive 14 SEE RESULT BELOW Name: STANLEY CORONA : [address]: Amberly Owens MD Acct: [id number] Unit: [id number] AGE: 39 Location: [facility] Re02/03/15 SEX: F Status: DEP REF SPEC: [id number] PILAR: 02/03/[address] [facility] [address]: Amberly Owens MD REQ: [id number] RECD: 02/03/15 STATUS: GILBERT ENG DR: Horace Velasquez COMPRESSED GASES TESTER _ SOURCE: CER/VAG/RE SPDESC: ORDERED: Grp B Strp Scrn, GBS Sensi COMMENTS: Comment: pt has PCN allergy, needs C S if positive QUERIES: Is patient penicillin allergic and/or sensitivities needed? Y Procedure Result Reported Site Group B Strep Culture Screen Final 02/05/15- 1137 ML Group B Strep Screen Positive Organism 1 STREP GROUP B GBS Sensitivity Final 02/06/15- 1053 ML Organism 1 STREP AGALACTIAE - (GROUP B) 1. STREP AGALACTIAE - (GROUP B) M.I.C. RX --------- ------ Ampicillin <=0.25 S Penicillin <=0.12 S Clindamycin >=8 R Levofloxacin 1 S Linezolid 2 S * Moxifloxacin <=0.25 S * Quinupristin/Dalfopristin 0.5 S Tetracycline >=16 R Tigecycline <=0.12 S Vancomycin <=0.5 S Imipenem-Deduced S * Ampicillin/Sulbactam-Deduced S Cefazolin-Deduced S CONTINUED ON NEXT PAGE * ML=Testing performed at Main Lab DEPARTMENT OF PATHOLOGY, [address] [place] [address] Chance Bernard M.D. Director [facility] # [id number] Patient: STANLEY CORONA [id number] (Continued) Specimen: [id number] Collected: 02/03/15 Received: 02/03/15 (Continued) Procedure Result Reported Site GBS Sensitivity Final (continued) * These antibiotics are not available in the [facility] Formulary Contact the Microbiology Department for any additional antibiotic reporting. * ML - MAIN LAB ([facility]) . END OF REPORT * ML=Testing performed at Main Lab DEPARTMENT OF PATHOLOGY, [address] [place] [address] Chance Bernard M.D. Director [facility] # [id number] 15 Because ethnic data is not always readily available, this report includes an eGFR for both -Americans and non- Americans. The National Kidney Disease Education Program (NKDEP) does not endorse the use of the MDRD equation for patients that are not between the ages of 18 and 70, are , have extremes of body size, muscle mass, or nutritional status, or are non- or non-. According to the National Kidney Foundation, irrespective of diagnosis, the stage of the disease is based on the level of kidney function: Stage Description GFR(mL/min/1.73 m(2)) 1 Kidney damage with normal or decreased GFR 90 2 Kidney damage with mild decrease in GFR 60-89 3 Moderate decrease in GFR 30-59 4 Severe decrease in GFR 15-29 5 Kidney failure <15 (or dialysis) 16 Acute inflammation: >10.00 17 Nasopharyngeal swab 18 REFERENCE VALUE Not Applicable 19 REFERENCE VALUE Not Applicable ADDITIONAL INFORMATION Laboratory developed test. Test Performed by: [address] [address] Superintendent Track: Tod Harrison M.D. 20 RUN DATE: 01/01/14 [facility] LAB LIVE PAGE 1 RUN TIME: [address] [place] [address] Specimen Inquiry Name: STANLEY CORONA : [address]: Caleb Adams MD Acct: [id number] Unit: [id number] AGE: 38 Location: ED Re12/27/13 SEX: F Status: DEP ER SPEC: [id number] PILAR: 12/27/13-[address] [facility] [address]: Kai Mckee DO REQ: [id number] RECD: 12/27/13 STATUS: GILBERT ENG DR: Horace Velasquez COMPRESSED GASES TESTER _ SOURCE: BLOOD,VENO SPDES: ORDERED: Blood Cult Procedure Result Verified Site Aerobic Culture Bottle Final 01/01/14- 1452 ML No Growth Day 5 Anaerobic Culture Bottle Final 01/01/14- 1452 ML No Growth Day 5 END OF REPORT * ML=Testing performed at Main Lab DEPARTMENT OF PATHOLOGY, [facility] [employer] [place], [place] [address] Chance Bernard M.D. Director [facility] # [id number] RUN DATE: 12/30/13 [facility] LAB LIVE PAGE 1 RUN TIME: [address] [place] [address] Specimen Inquiry Name: XAVIERSTANLEY : [address]: Caleb Adams MD Acct: [id number] Unit: [id number] AGE: 38 Location: ED Re12/27/13 SEX: F Status: DEP ER SPEC: [id number] PILAR: 12/27/[address] [facility] [address]: Kai Mckee DO REQ: [id number] RECD: 12/27/13 STATUS: GILBERT ENG DR: Horace Velasquez COMPRESSED GASES TESTER _ SOURCE: BREAST,RIG SPDES: ORDERED: Culture Stain Procedure Result Verified Site Wound/Misc Gram Stain Final 12/28/13- 44 ML 2+ Neutrophils No Organisms Seen Wound/Misc Culture Final 12/30/13- 913 ML Organism 1 STAPHYLOCOCCUS AUREUS Quantity 1+ Organism 2 NORMAL LELA Quantity 1+ 1. STAPHYLOCOCCUS AUREUS M.I.C. RX --------- ------ Penicillin >=0.5 R Clindamycin <=0.25 S Erythromycin <=0.25 S Gentamicin <=0.5 S Linezolid 1 S Nitrofurantoin <=16 S Oxacillin <=0.25 S * Quinupristin/Dalfopristin <=0.25 S Rifampin <=0.5 S Tetracycline <=1 S Doxycycline - Deduced S * Minocycline - Deduced S Trimethoprim/Sulfamethoxazole <=10 S Vancomycin 1 S CONTINUED ON NEXT PAGE * ML=Testing performed at Main Lab DEPARTMENT OF PATHOLOGY, [facility] [employer] [place] [address] Chance Bernard M.D. Director [facility] # [id number] RUN DATE: 12/30/13 [facility] LAB LIVE PAGE 2 RUN TIME: [address] [place] [address] Specimen Inquiry Patient: STANLEY CORONA [id number] (Continued) Specimen: [id number] Collected: 12/27/13 Received: 12/27/13 (Continued) Procedure Result Verified Site Wound/Misc Culture Final (continued) 12/30/13913 1. STAPHYLOCOCCUS AUREUS (continued) M.I.C. RX --------- ------ Imipenem-Deduced S * Ampicillin/Sulbactam-Deduced S Cefazolin-Deduced S * These antibiotics are not available in the [facility] Formulary Contact the Microbiology Department for any additional antibiotic reporting. END OF REPORT * ML=Testing performed at Main Lab DEPARTMENT OF PATHOLOGY, [address] [place] [address] Chance Bernard M.D. Director [facility] # [id number] 22 Because ethnic data is not always readily available, this report includes an eGFR for both -Americans and non- Americans. The National Kidney Disease Education Program (NKDEP) does not endorse the use of the MDRD equation for patients that are not between the ages of 18 and 70, are , have extremes of body size, muscle mass, or nutritional status, or are non- or non-. According to the National Kidney Foundation, irrespective of diagnosis, the stage of the disease is based on the level of kidney function: Stage Description GFR(mL/min/1.73 m(2)) 1 Kidney damage with normal or decreased GFR 90 2 Kidney damage with mild decrease in GFR 60-89 3 Moderate decrease in GFR 30-59 4 Severe decrease in GFR 15-29 5 Kidney failure <15 (or dialysis) 23 Acute inflammation: >10.00 24 This test detects intact HCG only and is indicated for the early detection of . 25 Because ethnic data is not always readily available, this report includes an eGFR for both -Americans and non- Americans. The National Kidney Disease Education Program (NKDEP) does not endorse the use of the MDRD equation for patients that are not between the ages of 18 and 70, are , have extremes of body size, muscle mass, or nutritional status, or are non- or non-. According to the National Kidney Foundation, irrespective of diagnosis, the stage of the disease is based on the level of kidney function: Stage Description GFR(mL/min/1.73 m(2)) 1 Kidney damage with normal or decreased GFR 90 2 Kidney damage with mild decrease in GFR 60-89 3 Moderate decrease in GFR 30-59 4 Severe decrease in GFR 15-29 5 Kidney failure <15 (or dialysis) 26 GLU Fast 72 Col: 10/28/12 0825 GLU 1HR 146 Col: 10/28/12 0936 GLU 2HR 119 Col: 10/28/12 1040 GTT Interp Col: 10/28/12 0825 Gestational Diabetes Diagnostic: OGTT Glucose Load: samples drawn after 75-gram glucose drink Target Levels: Fasting <92 mg/dl 1hr <180 mg/dl 2hr <153 mg/dl If ONE or more values meet or exceed the target level, gestational diabetes is diagnosed. @ 27 Because ethnic data is not always readily available, this report includes an eGFR for both -Americans and non- Americans. The National Kidney Disease Education Program (NKDEP) does not endorse the use of the MDRD equation for patients that are not between the ages of 18 and 70, are , have extremes of body size, muscle mass, or nutritional status, or are non- or non-. According to the National Kidney Foundation, irrespective of diagnosis, the stage of the disease is based on the level of kidney function: Stage Description GFR(mL/min/1.73 m(2)) 1 Kidney damage with normal or decreased GFR 90 2 Kidney damage with mild decrease in GFR 60-89 3 Moderate decrease in GFR 30-59 4 Severe decrease in GFR 15-29 5 Kidney failure <15 (or dialysis) 28 RESULT: Results suggest past infection. In most populations, at least 90% of the adult population will have been infected with EBV sometime in the past and therefore, will be positive for anti-VCA/IgG and anti- EBNA. Antibodies to EBNA develop 6-8 weeks after primary infection and remain present for life. Presence of VCA/ IgM antibodies indicates recent primary infection with EBV. Test Performed by: [place] [address] Superintendent Track: Venancio Hand III, M.D. 29 Test Performed by: [place] [address] Superintendent Track: Venancio Hand III, M.D. 30 REFERENCE RANGE: <1:8 INTERPRETIVE CRITERIA: <1:8 Antibody Not Detected > or=1:8 Antibody Detected Single titers of > or=1:32 are indicative of recent infection. Titers of 1:8 or 1:16 may be indicative of either past or recent infection, since CF antibody levels persist for only a few months. A four-fold or greater increase in titer between acute and convalescent specimens confirms the diagnosis. There is considerable crossreactivity among enteroviruses; however, the highest titer is usually associated with the infecting serotype. This test was developed and its performance characteristics have been determined by [employer]. Performance characteristics refer to the analytical performance of the test. Test Performed by: [facility] [address] [place] [address] 31 REFERENCE RANGE: <1:8 INTERPRETIVE CRITERIA: <1:8 Antibody Not Detected > or=1:8 Antibody Detected Single titers of > or=1:32 are indicative of recent infection. Titers of 1:8 or 1:16 may be indicative of either past or recent infection, since CF antibody levels persist for only a few months. A four-fold or greater increase in titer between acute and convalescent specimens confirms the diagnosis. There is considerable crossreactivity among enteroviruses; however, the highest titer is usually associated with the infecting serotype. This test was developed and its performance characteristics have been determined by [employer]. Performance characteristics refer to the analytical performance of the test. Test Performed by: [facility] [address] [place] [address] 32 Please note: The following may produce a false positive D Dimer test: - Rheumatoid factor greater than 60 IU/ml - Plasma hemoglobin greater than 0.05 gm/dl - Bilirubin greater than 50 mg/dl - Lipids greater than 1000 mg/dl - FDP greater than 20 ug/ml Procedures Date CPT Code Description Status 12/28/2016 Mammogram Completed Encounters Type Date Location Provider CPT E/M Dx Office Visit 06/04/2017 [facility] [place] [address] S46.012A 2:00p AroldoMJorge M19.211 S46.011D M19.111 Office Visit 05/21/2017 1:00p [facility] Olaf Reyes [address]135 S46.012A Of Brian Villalobos MD S46.011A Office Visit 05/21/2017 10:40a [facility] Internal Medicine Camila Linder 85013 M25.511 - Francesca Viera Office Visit 04/03/2017 4:00p [facility] Internal Medicine Camila Linder [address]236 R05 Halie Ma M.D. Office Visit 01/30/2017 8:15a [facility] Leann Nieto M.D. 14635 M25.551 Of Brian M70.61 M76.01 M54.5 Office Visit 01/24/2017 9:20a [facility] Internal Medicine - Horace Velasquez, [place] [address] M25.551 [place] R11.0 R10.9 Z13.220 Office Visit 11/11/2015 2:40p [facility] Internal Medicine - Horace Velasquez, [place] [address] M25.529 [place] M79.673 R53.83 M25.50 Office Visit 03/10/2014 2:00p [facility] Internal Medicine - Horace Velasquez, [place] [address] 465.9 [place] Office Visit 11/26/2013 9:00a [facility] Internal Medicine - Horace Velasquez, [place] [address] 461.8 [place] 381.81 309.29 Office Visit 07/24/2013 10:40a [facility] Internal Medicine - Gin Sanches M.D. 36237 611.71 [place] 368.10 Office Visit 01/08/2013 3:00p [facility] Anand Ortega, [address] 738.4 Of [facility] Aylin 756.11 Office Visit 10/24/2012 4:00p [facility] Internal Medicine Aaliyah Brown N.PHieu 68014 729.5 - [place] Office Visit 10/14/2012 3:00p [facility] Internal Medicine Albania Cruz M.D., 44824 780.79 - [place] FACP 079.99 Office Visit 10/09/2012 4:20p [facility] Internal Medicine - Albania Cruz M.D., 24265 057.9 [place] FACP 079.99 780.79 528.2 Office Visit 10/07/2012 1:20p [facility] Internal [facility] Lindsey Ramires M.D. 11046 528.5 - [place] 381.4 691.8 Office Visit 08/27/2012 12:40p [facility] Internal Medicine Gin Sanches M.D. 15572 729.5 - [place] Office Visit 05/13/2012 10:00a [facility] Internal Medicine Lindsey Ramires M.D. 14624 V70.0 - [place] V17.49 V18.19 780.79 Plan of Care 10/22/2017 - Horace Velasquez, NPR53.83 Other fatigueComments:I am ordering some lab work to evaluate your symptoms. I will notify you of the results.R50.9 Fever, [id number] Other chest painNew Orders:EKGR06.02 Shortness of breath
[2017-10-23 11:50] LABS: EGFR Non-African American 79.8 (>60)
--- NOTE | 2017-10-23 12:00 | RAD ---
INDICATION: Chest pain. COMPARISON: Comparison is made with a prior study from October 22, 2017. TECHNIQUE: An AP upright view of the chest was obtained. FINDINGS: The heart is within normal limits in size. Mediastinal and hilar contours appear within normal limits. The lungs are clear. No pleural effusion or pneumothorax is seen. IMPRESSION: NO EVIDENCE FOR ACTIVE CARDIOPULMONARY DISEASE.
--- NOTE | 2017-10-23 12:44 | ED ---
Complex/Multi-Sys Presentation - HPI Summary HPI Summary: Pt is a 42 y/o female who presents to the ED c/o weakness. She states 3 weeks ago she began to have a normal cold, with sore throat and fever. One week later everyone in her family had a bad virus, including pink eye and high fever. She reports spiking a fever of 104 degrees F. Later that week she began to have more symptoms, including weakness, chills, and extreme fatigue. Three days ago, she started to have even more symptoms, which include chest pressure, foggy mind , SOB, blurry vision, headache, nausea, urinary urgency and frequency, more frequent and irregular BM, and anxiety about her health status. She denies any double vision, vomiting, diarrhea, hematuria, rashes, LE edema, bruises, dysuria , or hematochezia. Pt has been traveling a lot in the past few weeks, and is under stress due to poor family health. Pt saw Dr. Mir for her continuous eye pain two days ago, and had a CXR and bloodwork done. She denies any new medications, and has been taking vitamins and Advil for her symptoms. Pt is normally active but states she has not been able to work or exercise lately due to her symptoms. - History Of Current Complaint Chief Complaint: EDShortnessOfBreath Hx Obtained From: Patient Onset/Duration: Gradual Onset, Lasting Weeks - 3, Worse Since Timing: Constant Aggravating Factor(s): Recent stress Associated Signs And Symptoms: Positive: Weakness, Headache, SOB, Chest Pain, Nausea, Fever. Negative: Vomiting, Diarrhea, Abdominal Pain, Back Pain, Dysuria - Allergies/Home Medications Allergies/Adverse Reactions: Allergies Allergy/AdvReac Type Severity Reaction Status Date / Time MS Amoxicillin [Amoxicillin] Allergy Severe Rash Verified 06/19/17 09:53 MS Penicillins [PCN] Allergy Severe Rash Verified 06/19/17 09:53 Adhesive Tape Allergy ITCHY RASH Verified 06/19/17 09:53 ENVIRONMENTAL Allergy Unknown Uncoded 06/19/17 09:53 Reaction Details LATEX Allergy ITCHY RASH Uncoded 06/19/17 09:53 PMH/Surg Hx/FS Hx/Imm Hx Previously Healthy: Yes Endocrine/Hematology History: Denies: Hx Diabetes, Hx Thyroid Disease Cardiovascular History: Denies: Hx Hypertension, Hx Pacemaker/ICD Respiratory History: Denies: Hx Asthma, Hx Chronic Obstructive Pulmonary Disease (COPD) GI History: Denies: Hx Ulcer History: Denies: Hx Renal Disease Sensory History: Denies: Hx Contacts or Glasses, Hx Hearing Aid Opthamlomology History: Denies: Hx Contacts or Glasses Neurological History: Reports: Hx Migraine - SEVERE - CAUSING HOSPITALIZATION X 2 Psychiatric History: Reports: Hx Anxiety Denies: Hx Panic Disorder - Surgical History Surgery Procedure, Year, and Place: d/c Infectious Disease History: No Infectious Disease History: Reports: Hx Shingles - at age 11 Denies: Hx Clostridium Difficile, Hx Hepatitis, Hx Human Immunodeficiency Virus (HIV), Hx of Known/Suspected MRSA, Hx Tuberculosis, Hx Known/Suspected VRSA, History Other Infectious Disease, Traveled Outside the [place] in Last 30 Days - Family History Known Family History: Positive: Cardiac Disease - maternal grandmother - CHF, at 62, Diabetes - maternal grandmother - Social History Alcohol Use: None Alcohol Amount: denies alcohol use while Hx Substance Use: No Substance Use Type: Reports: None Hx Tobacco Use: No Smoking Status (MU): Never Smoked Tobacco Have You Smoked in the Last Year: No Review of Systems Positive: Fever, Chills, Fatigue, Other - "foggy mind" Eyes: Other - [place] eye - pain Positive: Blurred Vision. Negative: Diplopia Positive: Sore Throat. Negative: Ear Ache Positive: Chest Pain - Pressure Positive: Shortness Of Breath Positive: Nausea. Negative: Vomiting, Diarrhea, Other - Hematochezia, frequent irregular BM Positive: frequency, urgency. Negative: hematuria Negative: Edema Negative: Rash, Bruising Positive: Headache, Weakness Positive: Anxious All Other Systems Reviewed And Are Negative: No Physical Exam - Summary Physical Exam Summary: Appearance: Alert, conversive, nontoxic appearing Skin: Warm, dry, no mottling, no rashes, no contusions HEENT: EOMI, PERRL, dry mucous membranes Neck: No masses on the neck, supple Respiratory: Clear to auscultation, breath sounds present, no rales, no rhonchi , no wheezes Cardiovascular: RRR, pulses are symmetrical in both lower and upper extremities Abdomen: Soft, epigastric tenderness Bowel Sounds: Present Musculoskeletal: No CVA tenderness, no obvious deformity, moving all extremities in a grossly normal manner Neurological: A&Ox3, CN II-XII Intact, moving all extremities symmetrically Psychiatric: Anxious Triage Information Reviewed: Yes Vital Signs On Initial Exam: Initial Vitals Temp Pulse Ox 97.9 F 100 10/23/17 10:20 10/23/17 10:20 Vital Signs Reviewed: Yes Diagnostics - Vital Signs Vital Signs Temp Pulse Resp BP Pulse Ox 10/23/17 10:25 75 17 138/70 100 10/23/17 10:23 21 10/23/17 10:20 97.9 F 100 - Laboratory Lab Results: Lab Results 10/23/17 10/23/17 10/23/17 Range/Units 11:18 11:18 11:18 WBC 5.2 (3.5-10.8) 10^3/ul RBC 4.53 (4.00-5.40) 10^6/ul Hgb 14.6 (12.0-16.0) g/dl Hct 42 (35-47) % MCV 92 (80-97) fL MCH 32 H (27-31) pg MCHC 35 (31-36) g/dl RDW 12 (10.5-15) % Plt Count 237 (150-450) 10^3/ul MPV 7.7 (7.4-10.4) um3 Neut % (Auto) 65.4 (38-83) % Lymph % (Auto) 23.4 L (25-47) % [place] % (Auto) 9.3 H (0-7) % Eos % (Auto) 1.0 (0-6) % Baso % (Auto) 0.9 (0-2) % Absolute Neuts (auto) 3.4 (1.5-7.7) 10^3/ul Absolute Lymphs (auto) 1.2 (1.0-4.8) 10^3/ul Absolute Monos (auto) 0.5 (0-0.8) 10^3/ul Absolute Eos (auto) 0.1 (0-0.6) 10^3/ul Absolute Basos (auto) 0 (0-0.2) 10^3/ul Absolute Nucleated RBC 0 10^3/ul Nucleated RBC % 0.2 D-Dimer, Quantitative < 200 (Less Than 230) ng/mL Sodium 140 (135-145) mmol/L Potassium 4.0 (3.5-5.0) mmol/L Chloride 107 (101-111) mmol/L Carbon Dioxide 26 (22-32) mmol/L Anion Gap 7 (2-11) mmol/L BUN 11 (6-24) mg/dL Creatinine 0.79 (0.51-0.95) mg/dL Est GFR ( Amer) 96.6 (>60) Est GFR (Non-Af Amer) 79.8 (>60) BUN/Creatinine Ratio 13.9 (8-20) Glucose 89 (70-100) mg/dL Calcium 9.4 (8.6-10.3) mg/dL Magnesium 2.1 (1.9-2.7) mg/dL Total Bilirubin 0.70 (0.2-1.0) mg/dL AST 19 (13-39) U/L ALT 12 (7-52) U/L Alkaline Phosphatase 42 (34-104) U/L Troponin I 0.00 (<0.04) ng/mL Total Protein 7.2 (6.4-8.9) g/dL Albumin 4.4 (3.2-5.2) g/dL Globulin 2.8 (2-4) g/dL Albumin/Globulin Ratio 1.6 (1-3) Lipase 22 (11.0-82.0) U/L TSH 1.66 (0.34-5.60) mcIU/mL Result Diagrams: 10/23/17 11:18 10/23/17 11:18 Lab Statement: Any lab studies that have been ordered have been reviewed, and results considered in the medical decision making process. - Radiology CXR Xray Interpretation: No Acute Changes - NO EVIDENCE FOR ACTIVE CARDIOPULMONARY DISEASE. ED physician reviewed radiology report. Radiology Interpretation Completed By: Radiologist - EKG 13:10 Cardiac Rate: Bradycardia - 58 bpm EKG Rhythm: Sinus Rhythm EKG Interpretation: Nl QRS, nl QTc, nl axis Re-Evaluation - Re-Evaluation First Eval Re-Evaluation Time: 12:47 Change: Unchanged Comment: Discussed results with pt, and she is to follow up with her PCP. Complex Multi-Symp Course/Dx Course Of Treatment: Pt is a 42 y/o female who presents to the ED c/o weakness. She states 3 weeks ago she began to have a normal cold, with sore throat and fever. One week later everyone in her family had a bad virus, including pink eye and high fever. Later that week she began to have more symptoms, including weakness, chills, and extreme fatigue. Three days ago, she started to have even more symptoms, which include chest pressure, foggy mind, SOB, blurry vision, headache, nausea, urinary urgency and frequency, more frequent and irregular BM , and anxiety about her health status. She denies any double vision, vomiting, diarrhea, hematuria, rashes, LE edema, bruises, dysuria, or hematochezia. A physical exam revealed anxious, epigastric tenderness, and dry mucous membranes. A CXR was negative. An EKG revealed bradycardia at a rate of 58 bpm, and was otherwise normal. Lab results were normal and show no sign of blood clots. Final dx are viral syndrome and anxiety. Pt will be discharged and is agreeable with this plan. After discharge, pt asked if she could have a rx for xanax. 15 pills of xanax 0.25mg were sent to her pharmacy on file. - Diagnoses Provider Diagnoses: Viral syndrome, Anxiety Discharge - Sign-Out/Discharge Documenting (check all that apply): Patient Departure - discharge - Discharge Plan Condition: Stable Disposition: HOME Prescriptions: ALPRAZolam TAB* [Xanax TAB*] 0.25 mg PO Q8H PRN #15 tab MDD 3 PRN Reason: anxiety Patient Education Materials: Viral Syndrome (ED), Anxiety (ED) Forms: *Work Release Referrals: Horace Velasquez NP [Primary Care Provider] - Additional Instructions: return if worse or any new symptoms. Please follow up with your primary care physician saturday. Eat healthy. drink plenty of water. Please focus on ways to deal with stress. - Billing Disposition and Condition Condition: STABLE Disposition: Home - Attestation Statements Document Initiated by Scribe: Yes Documenting Scribe: Daniela Duarte Provider For Whom Tiana is Documenting (Include Credential): Marianela Talley MD Scribe Attestation: Daniela Russell scribed for Marianela Talley MD on 10/23/17 at 1416. Scribe Documentation Reviewed: Yes Provider Attestation: The documentation as recorded by the caroleDaniela accurately reflects the service I personally performed and the decisions made by , Marianela Talley MD
[2017-10-23 13:46] VITALS: BP 116/70
== END 2017-10-23 13:45 | disposition home or self-care (01) ==
LOC: ED 10:12
DX: B34.9 Viral infection, unspecified (principal); F41.9 Anxiety disorder, unspecified; R07.89 Other chest pain; R00.1 Bradycardia, unspecified; Z88.0 Allergy status to penicillin; Z91.040 Latex allergy status; Z91.048 Other nonmedicinal substance allergy status
CPT/HCPCS: 36415; 71045; 80053; 83690; 83735; 84443; 84484; 85025; 85379; 93005; 96374; 99283